=== PATIENT | male | born 1965 | race American Indian/Alaskan Native ===

== ENCOUNTER 2017-06-30 11:14 | Day surgery (SDC) | payer OTHER ==
[2017-06-30] MEDS ORDERED: Propofol 10 mg/ml Inj (20 ML) ONE (11:42)
[2017-06-30 12:55] VITALS: TEMP 97
[2017-06-30 13:48] VITALS: BP 117/81; PULSE 78; RESP 17; O2SAT 96
== END 2017-06-30 13:44 | disposition home or self-care (01) ==
LOC: C.ENDO 11:14
PROVIDERS: ATTEND Internal Medicine
DX: Z80.0 Family history of malignant neoplasm of digestive organs (principal); Z12.11 Encounter for screening for malignant neoplasm of colon; D12.7 Benign neoplasm of rectosigmoid junction; D12.5 Benign neoplasm of sigmoid colon; D12.3 Benign neoplasm of transverse colon
CPT/HCPCS: 45380; 45388; 82948; 88305; J2704